=== PATIENT | female | born 1995 | race Caucasian/White ===

== ENCOUNTER 2017-03-20 21:21 | Outpatient (CLI) | payer OTHER ==
[~2017-03-20] VITALS: Ht 167.6 cm; Wt 93.0 kg
[2017-03-20 21:45] VITALS: BP 113/66
[2017-03-20] MEDS ORDERED: PRENATAL TABLE1 EAC3 PO (21:57)
== END 2017-03-20 22:10 | disposition home or self-care (01) ==
LOC: LDRP-OP → 2WEST 21:22 → LDRP-OP 05-15 12:48
DX: O36.8130 Decreased fetal movements, third trimester, not applicable or unspecified (principal); Z3A.36 36 weeks gestation of pregnancy
CPT/HCPCS: 59025; G0378

== ENCOUNTER 2017-04-08 09:16 | Inpatient (IN) | payer OTHER ==
[2017-04-08] VITALS (17 sets, daily range): BP systolic 111–138; BP diastolic 61–97
[~2017-04-08] VITALS: Ht 170.2 cm; Wt 94.3 kg
[~2017-04-08 09:16] MED LIST: PRENATAL TABLE1 EAC3 PO
[2017-04-08 11:28] LABS: BASOPHIL (%) 0.8 % (0-1); BASOPHIL COUNT 0.1 K/uL (0-0.1); EOSINOPHIL (%) 0.5 % (0-5); EOSINOPHIL COUNT 0.1 K/uL (0-0.3); HEMATOCRIT 39.9 % (36.0-46.0); HEMOGLOBIN 13.7 G/DL (11.9-15.5); LYMPHOCYTE (%) 13.1 % (15-42); LYMPHOCYTE COUNT 2.2 K/uL (1.0-2.8); MCH 32.8 PG (29.0-34.0); MCHC 34.3 G/DL (30.0-36.0); MCV 95.5 FL (83-99); MONOCYTE (%) 7.8 % (3-12); MONOCYTE COUNT 1.3 K/uL (0-0.8); NEUTROPHIL (%) 73.8 % (45-76); NEUTROPHIL COUNT 12.4 K/uL (1.8-6.4); PLATELET COUNT 189 K/uL (156-360); RBC DIS.WIDTH-CV 13.5 % (11.8-14.6); RBC DIS.WIDTH-SD 47.3 % (39-53); RED BLOOD COUNT 4.18 M/uL (3.80-5.20); WHITE BLOOD COUNT 16.8 K/uL (4.1-10.2)
[2017-04-09 06:40] LABS: BASOPHIL (%) 0.4 % (0-1); BASOPHIL COUNT 0.1 K/uL (0-0.1); EOSINOPHIL (%) 0.3 % (0-5); EOSINOPHIL COUNT 0.1 K/uL (0-0.3); HEMATOCRIT 31.3 % (36.0-46.0); IMMATURE GRANULOCYTE (%) 2.6 % (0.0-0.7); LYMPHOCYTE (%) 15.9 % (15-42); LYMPHOCYTE COUNT 2.8 K/uL (1.0-2.8); MCH 32.6 PG (29.0-34.0); MCHC 33.5 G/DL (30.0-36.0); MCV 97.2 FL (83-99); MONOCYTE (%) 10.4 % (3-12); MONOCYTE COUNT 1.8 K/uL (0-0.8); NEUTROPHIL (%) 70.4 % (45-76); NEUTROPHIL COUNT 12.3 K/uL (1.8-6.4); PLATELET COUNT 155 K/uL (156-360); RBC DIS.WIDTH-CV 13.5 % (11.8-14.6); RBC DIS.WIDTH-SD 47.9 % (39-53); WHITE BLOOD COUNT 17.5 K/uL (4.1-10.2)
[2017-04-09 06:41] LABS: HEMOGLOBIN 10.5 G/DL (11.9-15.5); RED BLOOD COUNT 3.22 M/uL (3.80-5.20)
[2017-04-09 07:15] VITALS: BP 101/69
[2017-04-09 16:04] VITALS: BP 102/65
[2017-04-09 22:57] VITALS: BP 88/49
[2017-04-10 07:20] VITALS: BP 113/62
== END 2017-04-10 16:15 | disposition home or self-care (01) | DRG 775 ==
LOC: LDRP-OP 09:16 → 2WEST 09:18 → LDRP-OP 05-15 22:21
PROVIDERS: Advanced Practice Midwife
DX: O70.0 First degree perineal laceration during delivery (principal); O99.214 Obesity complicating childbirth; E66.3 Overweight; Z3A.39 39 weeks gestation of pregnancy; Z37.0 Single live birth
CPT/HCPCS: 85025; J0595; J7120; Q0169